=== PATIENT | female | born 1965 | race American Indian/Alaskan Native ===

== ENCOUNTER 2018-03-03 16:27 | Emergency (ER) | payer SELFPAY ==
[2018-03-03 17:02] LABS: Basophils # (Auto) 0.1 K/mm3 (0.0-0.1); Eosinophils # (Auto) 0.2 K/mm3 (0.0-0.4); Eosinophils % (Auto) 4.2 % (0.0-4.3); Hematocrit 38.9 % (30.3-42.9); Hemoglobin 12.8 gm/dl (10.1-14.3); Lymphocytes % (Auto) 37.5 % (13.4-35.0); Mean Corpuscular HGB Conc 33 % (30-34); Mean Corpuscular Hemoglobin 28 pg (28-32); Mean Corpuscular Volume 85 fl (79-97); Monocytes # (Auto) 0.4 K/mm3 (0.0-0.8); Platelet Count 316 K/mm3 (140-440); Red Blood Count 4.61 M/mm3 (3.65-5.03); Red Cell Distribution Width 15.7 % (13.2-15.2)
[2018-03-03 17:24] LABS: BUN/Creatinine Ratio 14; Blood Urea Nitrogen 13 mg/dL (7-17); Calcium 8.8 mg/dL (8.4-10.2); Hemolysis Index 14
--- NOTE | 2018-03-03 18:11 | Emergency Department Report ---
ED Psych HPI - General Chief Complaint: Medical Clearance Stated Complaint: C/O DRUGGED Time Seen by Provider: 03/03/18 17:29 Source: patient, EMS Mode of arrival: Wheelchair - History of Present Illness Initial Comments: Patient is 52 years old female unknown to us. Patient brought into the ER by [facility] and was found at a gas station. Patient stated that someone gave her some chocolate with drug in it. Patient stated that she does not known the personal given his general: Very well but he will work across the street from her. Patient denied any visual or auditory hallucination, suicidal or homicidal ideation. Patient is very inappropriate in the exam room trying to touch the provider and also inappropriate fascial expression with frequent smiles. MD Complaint: altered mental status - Related Data Allergies Allergy/AdvReac Type Severity Reaction Status Date / Time No Known Allergies Allergy Unverified 03/03/18 16:34 ED Review of Systems ROS: Stated complaint: C/O DRUGGED Other details as noted in HPI Comment: All other systems reviewed and negative Constitutional: denies: chills, fever Respiratory: denies: cough Gastrointestinal: denies: abdominal pain, nausea Musculoskeletal: denies: back pain ED Past Medical Hx - Past Medical History Previous Medical History?: Yes Hx Hypertension: Yes - Surgical History Past Surgical History?: No - Social History Smoking Status: Never Smoker Substance Use Type: Alcohol ED Physical Exam - General Limitations: No Limitations General appearance: alert, in no apparent distress, anxious, other - Head Head exam: Present: atraumatic, normocephalic, normal inspection - Eye Eye exam: Present: normal appearance - ENT ENT exam: Present: normal exam, normal orophraynx, mucous membranes moist - Neck Neck exam: Present: normal inspection, full ROM. Absent: tenderness, meningismus - Respiratory Respiratory exam: Present: normal lung sounds bilaterally - Cardiovascular Cardiovascular Exam: Present: regular rate, normal rhythm, normal heart sounds - GI/Abdominal GI/Abdominal exam: Present: soft, normal bowel sounds. Absent: distended, tenderness, guarding, rebound, rigid, organomegaly, mass, bruit, pulsatile mass - Extremities Exam Extremities exam: Present: normal inspection, full ROM, normal capillary refill - Back Exam Back exam: Present: normal inspection, full ROM. Absent: tenderness, CVA tenderness (R), CVA tenderness (L), muscle spasm, paraspinal tenderness, vertebral tenderness, rash noted - Neurological Exam Neurological exam: Present: alert, oriented X3, CN II-XII intact, normal gait - Psychiatric Psychiatric exam: Present: normal mood. Absent: agitated, anxious, manic, homicidal ideation, suicidal ideation - Skin Skin exam: Present: warm, intact, normal color ED Course Vital Signs 03/03/18 03/03/18 03/03/18 16:34 18:26 22:03 Temperature 98.2 F 98.2 F Pulse Rate 108 H 118 H Respiratory 20 20 20 Rate Blood Pressure 135/72 Blood Pressure 164/72 [Right] O2 Sat by Pulse 98 99 Oximetry 03/03/18 22:06 Temperature Pulse Rate 77 Respiratory 18 Rate Blood Pressure Blood Pressure 134/87 [Right] O2 Sat by Pulse 100 Oximetry ED Medical Decision Making - Lab Data Result diagrams: 03/03/18 16:44 03/03/18 16:44 Critical care attestation.: If time is entered above; I have spent that time in minutes in the direct care of this critically ill patient, excluding procedure time. ED Disposition Clinical Impression: Dizziness, Generalized weakness Disposition: DC-01 TO HOME OR SELFCARE Is pt being admited?: No Condition: Stable Additional Instructions: You were seen here today with your complaint of dizziness and generalized weakness and with a suspicion for exposure to some type of illicit drug or chemical. Please return to the emergency department immediately with any worsening of your symptoms or any acute distress. Follow-up with your primary care physician in the next few days. Referrals: PRIMARY CARE, [Primary Care Provider] - [facility] Forms: Accompanied Note
[2018-03-03 21:32] LABS: Bilirubin,Urine NEG (Negative); Blood,Urine LG (Negative); Color,Urine Yellow (Yellow); Mucus,Urine FEW /HPF; Protein,Urine <15 mg/dL mg/dL (Negative); Urobilinogen,Urine < 2.0 mg/dL (<2.0)
[2018-03-03 21:37] LABS: Amphetamine Screen,Urine PRESUMPTIVE NEGATIVE; Benzodiazepines Screen,Urine PRESUMPTIVE NEGATIVE; Cocaine Screen,Urine PRESUMPTIVE NEGATIVE; Methadone Screen,Urine PRESUMPTIVE NEGATIVE; Opiate Screen,Urine PRESUMPTIVE NEGATIVE
[2018-03-03 21:48] LABS: Cannabinoid Screen,Urine PRESUMPTIVE POSITIVE
--- NOTE | 2018-03-03 21:48 | Emergency Department Report ---
HPI - General Chief Complaint: Medical Clearance Time Seen by Provider: 03/03/18 17:29 - HPI HPI: 52-year-old female presents to the emergency department by EMS after she ate some chocolate that she believes to be laced. She says that she was feeling very tired and needed something with sugar to give her a boost. However she says that she ate a chocolate from someone who works near her buttocks someone that she does not know very well. 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 Currently the patient says that she feels much better and has no current complaints. She denies any past medical history. She denies using any illicit drugs. Her primary care physician is a Dr. blair. ED Past Medical Hx - Past Medical History Previous Medical History?: Yes Hx Hypertension: Yes - Surgical History Past Surgical History?: No - Social History Smoking Status: Never Smoker Substance Use Type: Alcohol ED Review of Systems ROS: Stated complaint: C/O DRUGGED Other details as noted in HPI Comment: All other systems reviewed and negative Constitutional: weakness. denies: chills, fever Eyes: denies: eye pain, eye discharge, vision change ENT: denies: ear pain, throat pain Respiratory: denies: cough Cardiovascular: denies: chest pain, palpitations Gastrointestinal: denies: abdominal pain, nausea Genitourinary: denies: urgency, dysuria, discharge Musculoskeletal: denies: back pain Skin: denies: rash, lesions Neurological: denies: headache, numbness Physical Exam - Physical Exam Vital Signs: Vital Signs 03/03/18 03/03/18 16:34 18:26 Temperature 98.2 F 98.2 F Pulse Rate 108 H 118 H Respiratory 20 20 Rate Blood Pressure 135/72 Blood Pressure 164/72 [Right] O2 Sat by Pulse 98 99 Oximetry Physical Exam: GENERAL: The patient is well-developed well-nourished. HENT: Normocephalic. Atraumatic. Patient has moist mucous membranes. EYES: Extraocular motions are intact. Pupils equal reactive to light bilaterally. NECK: Supple. Trachea is midline. CHEST/LUNGS: Clear to auscultation. There is no respiratory distress noted. HEART/CARDIOVASCULAR: Regular. There is no tachycardia. There is no murmur. ABDOMEN: Abdomen is soft, nontender. Patient has normal bowel sounds. There is no abdominal distention. SKIN: Skin is warm and dry. NEURO: The patient is awake, alert, and oriented. The patient is cooperative. The patient has no focal neurologic deficits. The patient has normal speech. MUSCULOSKELETAL: There is no tenderness or deformity. There is no limitation range of motion. There is no evidence of acute injury. PSYCH: Patient is calm and appropriate. ED Course Vital Signs 03/03/18 03/03/18 16:34 18:26 Temperature 98.2 F 98.2 F Pulse Rate 108 H 118 H Respiratory 20 20 Rate Blood Pressure 135/72 Blood Pressure 164/72 [Right] O2 Sat by Pulse 98 99 Oximetry ED Medical Decision Making - Lab Data Result diagrams: 03/03/18 16:44 03/03/18 16:44 - Medical Decision Making The patient was originally seen on the fast track side by another provider and apparently was acting abnormally at that time some possible delusions or inappropriate laughter or behavior. However the patient is currently awake and alert, oriented and appears to have a normal mental capacity. She is calm and appropriate. The patient's story does not necessarily make complete sense to me in terms of where she works, where she was driving to, when EMS was called. However, the patient does not appear to be a candidate to be made a 1013. Her is currently at bedside and says that she has acting appropriately and at her baseline mental status. Patient was encouraged to follow up with her primary care physician and return to the emergency department with any concerns or with any acute distress. - Differential Diagnosis substance abuse, psychosis, delusions Critical Care Time: No Critical care attestation.: If time is entered above; I have spent that time in minutes in the direct care of this critically ill patient, excluding procedure time. ED Disposition Clinical Impression: Dizziness, Generalized weakness Disposition: DC-01 TO HOME OR SELFCARE Is pt being admited?: No Condition: Stable Additional Instructions: You were seen here today with your complaint of dizziness and generalized weakness and with a suspicion for exposure to some type of illicit drug or chemical. Please return to the emergency department immediately with any worsening of your symptoms or any acute distress. Follow-up with your primary care physician in the next few days. Referrals: PRIMARY CARE, [Primary Care Provider] - [facility] Forms: Accompanied Note Time of Disposition: 21:48
[2018-03-03 22:07] VITALS: BP 134/87
== END 2018-03-03 22:06 | disposition home or self-care (01) ==
LOC: ED 16:27
DX: R42 Dizziness and giddiness (principal); R53.1 Weakness; I10 Essential (primary) hypertension; Z79.899 Other long term (current) drug therapy
CPT/HCPCS: 36415; 80048; 80307; 81001; 84703; 85025; 99284; G0480; 80320